=== PATIENT | female | born 1955 | race Caucasian/White ===

== ENCOUNTER 2020-07-25 23:49 | Emergency (ER) | payer OTHER ==
[~2020-07-25] VITALS: Ht 154.9 cm; Wt 86.4 kg
[~2020-07-25 23:49] MED LIST: AMLO-257 PO; ASPI-556 PO; HUMLIS7525 SQ; HYDR25TA2 PO; INSLAN SQ; LOSA50TA37 PO; METF-960 PO; PRAV40TA4 PO
[2020-07-26 00:30] LABS: GLUCOSE,POINT OF CARE 70 MG/DL (70-110)
[2020-07-26 01:47] LABS: BASOPHILS % (AUTO) 0.4 % (0.0-2.0); EOSINOPHILS % (AUTO) 2.1 % (1.0-6.0); HEMATOCRIT 33.9 % (36-46); LYMPHOCYTES # (AUTO) 1.1 K/uL (1.0-4.8); LYMPHOCYTES % (AUTO) 13.9 % (22.0-44.0); MEAN CORPUSCULAR HEMOGLOBIN 28.1 pg (26.0-34.0); MEAN CORPUSCULAR HGB CONC 32.5 G/dL (31.0-37.0); MEAN CORPUSCULAR VOLUME 87 fL (80-100); MONOCYTES # (AUTO) 0.4 K/uL (0.1-1.0); MONOCYTES % (AUTO) 4.5 % (2.0-9.0); NEUTROPHILS # (AUTO) 6.4 K/uL (1.8-7.7); NEUTROPHILS % (AUTO) 79.1 % (40.0-70.0); PLATELET COUNT (AUTO) 231 K/uL (150-450); RED BLOOD CELL COUNT(AUTO) 3.91 MIL/uL (4.00-5.20); RED CELL DISTRIBUTION WIDTH 14.5 % (11.5-14.5)
[2020-07-26 01:58] LABS: CALCIUM, TOTAL 9.3 mg/dL (8.8-10.5); CREATININE 1.01 mg/dL (0.60-1.30); POTASSIUM 4.7 mmol/L (3.5-5.1)
[2020-07-26 02:04] LABS: ALBUMIN 3.9 g/dL (3.4-5.0); BILIRUBIN,TOTAL 0.4 mg/dL (0.1-1.0); TOTAL PROTEIN, SERUM 7.4 g/dL (6.4-8.2)
[2020-07-26 02:30] VITALS: BP 148/63
[2020-07-26 03:17] LABS: GLUCOSE,POINT OF CARE 114 MG/DL (70-110)
== END 2020-07-26 03:00 | disposition home or self-care (01) ==
LOC: EMS 07-26
DX: E11.649 Type 2 diabetes mellitus with hypoglycemia without coma (principal); I10 Essential (primary) hypertension; E78.00 Pure hypercholesterolemia, unspecified; Z79.4 Long term (current) use of insulin; Z79.82 Long term (current) use of aspirin
CPT/HCPCS: 80053; 82962; 84484; 85025; 93005; 99284